=== PATIENT | female | born 1990 | race Caucasian/White ===

== ENCOUNTER 2017-12-29 10:52 | Emergency (ER) | payer SELFPAY ==
--- NOTE | 2017-12-29 11:39 | ED Physician Chart ---
ED Chief Complaint/HPI - Patient Information Date Seen:: 12/29/17 Time Seen:: 11:29 Chief Complaint:: WITH VAGINAL SPOTTING PAST 4 DAYS History of Present Illness:: . THIS 2 AB 1 27-year-old female PRESENTS WITH VAGINAL SPOTTING THAT BEGAN 4 DAYS AGO. PATIENT HAS HAD MILD CRAMPING ALONG WITH THE SPOTTING OF BLOOD. PATIENT HAS PASSED A FEW BLOOD CLOTS BUT SHE DESCRIBES THE BLEEDING INTERMITTENT AND LIGHT THE PATIENT IS NOT LIGHTHEADED AND IS OTHERWISE WELL. Allergies:: Allergies Allergy/AdvReac Type Severity Reaction Status Date / Time No Known Allergies Allergy Verified 12/29/17 11:00 Vitals:: Vital Signs - 8 hr 12/29/17 11:04 Temp 97.8 F HR 88 RR 18 BP 136/93 O2 Sat % 99 Review:: Nurse's Note Reviewed (nursing notes on the triage sheet were reviewed. Patient was transferred from another facility and there was no EMS paperwork.) ED Review of Systems - Review of Systems General/Constitutional: No fever, No chills, No weight loss, No weakness, No diaphoresis, No edema Skin: No skin lesions, No bruising Head: No headache, No light-headedness Eyes: No loss of vision, No diplopia ENT: No earache, No sore throat, No tinnitus Neck: No neck pain, No swelling, No thyromegaly, No stiffness, No mass noted Cardio Vascular: No chest pain, No orthopnea Pulmonary: No SOB, No cough, No sputum, No wheezing GI: No nausea, No vomiting, No diarrhea, No hematochezia, No hematemesis G/U: No dysuria, No frequency, No hematuria Drawbridge Operator: Abnormal vaginal bleeding, Other (MILD) Musculoskeletal: No bone or joint pain, No back pain, No muscle pain Psychiatric: No prior psych history, No depression, No anxiety, No suicidal ideation Hematopoietic: No bruising, No lymphadenopathy Allergic/Immuno: No urticaria, No angioedema Neurological: No syncope, No focal symptoms, No weakness, No paresthesia, No headache, No seizure, No dizziness, No confusion, No vertigo ED Past Medical History - Past Medical History Past Medical History: No significant medical hx Social History: Non Smoker, No Alcohol, No Drug Use Surgical History: other (tonsillectomy at age 5.) Family Medical History - Family Member Mother History Unknown: Yes ED Physical Exam - Physical Examination General/Constitutional: Awake ( Pelvic examination showed a small amount of small losing, and no clots. The office was open to fingertip and it felt like the was probably lost.), Well-developed, well-nourished, Alert, No distress, GCS 15, Non-toxic appearing, Ambulatory Head: Atraumatic Eyes: Lids, conjuctiva normal, PERRL, EOMI Other Eyes comments:: NO NYSTAGMUS. Skin: Nl inspection, No rash, No skin lesions, No ecchymosis, Well hydrated, No lymphadenopathy ENMT: External ears, nose nl, Nasal exam nl, Lips, teeth, gums nl, Oropharynx nl , Tonsils nl (CONSULS have been surgically removed) Neck: Nontender, Full ROM w/o pain, No JVD, No nuchal rigidity, No bruit, No mass, No stridor Respiratory: Nl effort/Exclusion, No Wheeze/Rhonchi/Rales Cardio Vascular: RRR, No murmur, gallop, rubs, NL S1 S2 Other Cardio Vascular comments:: GOOD PULSES ALL 4 EXTREMITIES. GI: No organomegaly, Normal BS's, No mass/bruits, No McBurney tenderness Other GI comments:: MILD EPIGASTRIC TENDERNESS WITH NO ASSOCIATED REBOUND OR GUARDING. Rectal examination deferred at my discretion. : No CVA tenderness, NL external genitalia, No discharge Extremities: No tenderness or effusion, Full ROM, normal strength in all extremities, No edema, Normal digits & nails Neuro/Psych: Alert/oriented, DTR's symmetric, Normal sensory exam, Normal motor strength, Judgement/insight normal, Mood normal, No focal deficits Misc: Normal back, No paraspinal tenderness ED Labs/Radiology/EKG Results - Lab Results Results: Laboratory Tests 12/29/17 11:21 POC Ur Test Negative Laboratory Tests 12/29/17 12/29/17 11:21 11:55 WBC 5.6 RBC 4.67 Hgb 15.1 Hct 44.1 MCV 94.3 MCH 32.4 H MCHC Differential 34.3 RDW 11.4 L Plt Count 331 MPV 7.3 Neutrophils % 61.2 Lymphocytes % 31.9 Monocytes % 4.5 Eosinophils % 1.7 Basophils % 0.7 POC Ur Test Negative Laboratory interpretation the CBC is unremarkable with no leukocytosis or anemia. The hemoglobin level is 15.1. The ultrasound report showed no evidence of intrauterine , no free fluid and no masses in the region of the ovaries or the fallopian tubes. ED Assessment - Assessment General Assessment: SUMMARY CASE SUMMARY: THIS 27-YEAR-OLD GRAVIDA2, PARA 1 AB 1 PRESENTS WITH MILD UTERINE CRAMPING AND VEGETAL BLEEDING. Patient has not been passing blood clots and is not even certain that she's . Her last menstrual. was November on physical examination she is awake and alert and in no distress. On physical examination she has mild tenderness in the lower abdomen. Laboratory studies show her with a negative H CG. Dear due to the dates, the patient could be but not showing it on the ultrasound or on laboratory studies. The ultrasound study showed no adnexal masses and no free fluid. There was no visualized fetus. Based on the timing of her symptoms and her beta HCG levels is too early to mention TO DETERMINE IF THE PATIENT IS ACTUALLY OR NOT. She was advised to follow up with her tool repairer this coming week for reevaluation in approximately 7 to 10 days. She was further advised return to the emergency department for any serious bleeding or severe cramps. The patient was discharged to go home in stable condition. ED Septic Shock - <6hrs of presentation: Vital Signs: Vital Signs - 8 hr 12/29/17 11:04 Temp 97.8 F HR 88 RR 18 BP 136/93 O2 Sat % 99 Assessment of Lungs: No Rhonchi, No Rales, No Wheezing, No Stridor Assessment of Heart: No thrill, No Gallops, No Murmur Capillary refill evaluation: Capillary refill > 2 secs Skin Exam: Poor Turgor, No Diaphoresis, No Erythema ED Reassessment (Disposition) - Reassessment Reassessment Condition:: Unchanged, Improved - Diagnosis Diagnosis:: THREATENED AB. Follow-up with her regular OB doctor in 7-10 days for reevaluation. Return to the emergency department for any significant abdominal pain or increased vaginal bleeding. Return for any fainting or near fainting. - Aftercare/Follow up Instructions Aftercare/Follow-Up Instructions:: Counseled pt regarding lab results/diagnosis & need follow up ED Discharge Plan - Patient Disposition Admit/Discharge/Transfer: PT DISCHARGED HOME Condition at Disposition: Stable Instructions: - First Trimester, [id number], Threatened Miscarriage , [id number] Additional Instructions: MAKE A FOLLOW UP WITH PRIMARY MEDICAL DOCTOR-SOLAR INSTALLER PV WITHIN 10 DAYS, GO BACK TO EMERGENCY ROOM IF SYMPTOMS WORSEN.
[2017-12-29 11:59] LABS: % BASOPHILS 0.7 % (0.0-2.0); % EOSINOPHILS 1.7 % (0.0-5.0); % LYMPHOCYTES 31.9 % (20.0-50.0); % MONOCYTES 4.5 % (2.0-10.0); % NEUTROPHILS 61.2 % (40.0-80.0); EOSINOPHILE ABSOLUTE 0.1 Th/cmm (0.1-0.4); HEMATOCRIT 44.1 % (41.0-60); HEMOGLOBIN 15.1 gm/dL (12-16); LYMPHOCYTE ABSOLUTE 1.8 Th/cmm (1.5-3.0); MEAN CELL VOLUME 94.3 fl (81-100); MEAN CORPUSCULAR HEMOGLOBIN 32.4 pg (27.0-31.0); MEAN CORPUSCULAR HGB CONC 34.3 pg (28.0-36.0); MEAN PLATELET VOLUME 7.3 fl; MONOCYTE ABSOLUTE 0.3 Th/cmm (0.3-1.0); NEUTROPHILE ABSOLUTE 3.4 Th/cmm (1.8-8.0); PLATELET COUNT 331 Th/cmm (150-400); RED BLOOD COUNT 4.67 Mil/cmm (3.80-5.10); RED CELL DISTRIBUTION WIDTH 11.4 % (11.5-20.0); WHITE BLOOD COUNT 5.6 Th/cmm (4.8-10.8)
--- NOTE | 2017-12-29 12:57 | Diagnostic Imaging Report ---
OB ultrasound HISTORY: Abnormal bleeding Transvaginal sonographic technique was utilized. The uterus measures 7.8 x 4.4 x 5.3 cm. No focal myometrial lesions are seen. The endometrium measures 5 mm thickness. No intrauterine gestation identified at this time. The right ovary is mildly enlarged Weld 4.0 x 2.1 x 3.9 cm). Several cysts are seen. The largest measures 9 mm. The left ovary measures 2.9 x 2.0 x 4.0 cm. Several cysts are seen. The largest measures 7 mm. No free fluid in the pelvis. IMPRESSION: 1. No intrauterine gestation identified at this time. 2. Mild right ovarian enlargement with bilateral cystic ovarian changes as noted above. In the presence of a positive test, ectopic gestation must be excluded.
== END 2017-12-29 13:50 | disposition home or self-care (01) ==
LOC: EDSEX 10:52 → ER 10:52
DX: O20.0 Threatened abortion (principal); Z3A.00 Weeks of gestation of pregnancy not specified
CPT/HCPCS: 36415-UA; 76817-TC; 76830-TC; 81025-TC; 85025-TC